=== PATIENT | female | born 1935 | race Caucasian/White ===

== ENCOUNTER 2016-05-25 08:29 | Day surgery (SDC) | payer MEDICARE, OTHER ==
[~2016-05-25 08:29] MED LIST: LACTATED RINGERS 1,000 ML IV.SOLN IV ONE; LIDOCAINE HCL/PF 2% 100 MG/5 ML VIAL IJ ONE; PROPOFOL 200 MG/20 ML VIAL IV ONE; SALINE FLUSH 10 ML DISP.SYRIN IVF ONE
--- NOTE | 2016-05-25 12:14 | GI Report ---
REFERRING PHYSICIAN: Dr. Ward Alex SANDWICH MAKER: Vito Rosas MD PROCEDURE MEDICATION: Propofol as per anesthesia. INDICATIONS: Patient is a 80-year-old woman who comes from [facility] with complaints of some blood in her stool and episodes of diarrhea. She does have COPD and still smokes. She is on a number of medications and she has had a TIA and stroke in the past. She is referred for the above indications. PROCEDURE PERFORMED: Colonoscopy with biopsies. PROCEDURE: An Olympus video pediatric colonoscope was advanced to the rectum. The prep was poor. There was some dark mushy fluid throughout the whole colon. We tried to lavage it. We were able to finally get to the cecum. The appendiceal orifice, we lavaged her. 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 On glimpse at the terminal ileum, it was unremarkable. On slow withdrawal, cecum and ascending colon with redundancy. Again, prep was poor. Descending colon, again, with redundancy and poor prep. We did take random biopsies to rule out microscopic colitis. She does have a hemorrhoid in the rectum. The patient tolerated the procedure well. FINDINGS: 1. An atonic redundant colon. 2. Poor prep. 3. 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 4. Random biopsies to rule out microscopic colitis. RECOMMENDATIONS: 1. I would consider adding Benefiber or some fiber preparation that may help regulate the constipation and diarrhea back and forth better. 2. Follow up with Dr. Alex. cc: Dr. Ward OROZCO
== END 2016-05-25 08:30 ==
LOC: OPSURG 08:29
PROVIDERS: ATTEND Internal Medicine Gastroenterology
DX: K92.1 Melena (principal); R19.7 Diarrhea, unspecified; J44.9 Chronic obstructive pulmonary disease, unspecified; F17.210 Nicotine dependence, cigarettes, uncomplicated; K64.8 Other hemorrhoids
CPT/HCPCS: 88305; J2001; J2704; J7120; 45378; S1016

== ENCOUNTER 2017-05-01 19:33 | Emergency (ER) | payer MEDICARE, OTHER ==
--- NOTE | 2017-05-01 20:22 | ED Physician Documentation ---
Lower Extremity Injury - HISTORIAN Historian: patient, paramedics - HPI Stated Complaint: left knee pain Chief Complaint: Lower Extremity Injury Additional Information: PT OUT SHOPPING W/ [employer] TODAY GOT OUT OF CAR FELT POP LT KNEE-ON FLEET AFTERWARD FOR ABOUT 3 HRS-WITH PROGRESSIVE PAIN TO POINT PT THINKS CAN NOW WALK. NO FALL OR PREV KNEE PAIN. PT USUALLY DOES 'lots of walking' Onset: hours (1400HRS) Where: other (SHOPING AT [employer]) Severity: moderate, severe (ACCD TO PT) Context: twist. denies: fall, direct blow, stab, laceration, burn, barefoot Associated Symptoms:: swelling (PT SAYS YES-DONT SEE IT), unable to bear weight. denies: numbness distally Modifying Factors:: pain on movement - ROS CONST: denies: no problems CVS/RESP: none GI/: denies: problems urinating, nausea, vomiting MS/SKIN/LYMPH: none NEURO: anxiety. denies: headache, head injury, depression - PAST HX Past History: other (PT ADMITSMC COPD IN - OLD RECORD ALSO SAY; BIPOLAR DEMENTIA DELUSIONAL DISORDER SOMATIZATION SYNDROMESEIZURAE HTN PSYCHOSES ANXIETY PARANOIA SCHIZOPHRENIA) Allergies/Adverse Reactions: Allergies Allergy/AdvReac Type Severity Reaction Status Date / Time No Known Allergies Allergy Verified 05/01/17 20:21 Home Medications: Ambulatory Orders Medication Instructions Recorded Alprazolam [Xanax] 0.25 mg PO BID 05/01/17 Ascorbic Acid [Vitamin C] 500 mg PO DAILY 05/01/17 Budesonide/Formoterol Fumarate 1 puff IH BID 05/01/17 [Symbicort 80-4.5 Mcg Inhaler] Cetirizine HCl [Zyrtec] 10 mg PO DAILY 05/01/17 Cholecalciferol [Vitamin D-3] 2,000 unit PO DAILY 05/01/17 Duloxetine HCl [Cymbalta] 60 mg PO BID 05/01/17 Fluticasone Propionate [Flonase 1 spray NS BID PRN 05/01/17 Nasal [place]] Ipratropium/Albuterol Sulfate 3 ml NEB QID PRN 05/01/17 [Duoneb] Lamotrigine [Lamictal] 100 mg PO BID 05/01/17 Multivitamin [Tab-A-Stew] 1 each PO DAILY 05/01/17 Ondansetron HCl Rapdis [Zofran Odt] 4 mg PO Q6 PRN 05/01/17 Phenylephrine HCl [Suphedrine PE] 10 mg PO DAILY PRN 05/01/17 Risperidone [Risperdal] 0.25 mg PO BID 05/01/17 Topiramate [Topamax] 50 mg PO DAILY 05/01/17 Travoprost Z [Travatan Z 0.004% 1 drop OP HS 05/01/17 Opth [place]] Trazodone HCl 50 mg PO HS 05/01/17 Wheat Dextrin [Benefiber] 152 gm PO DAILY 05/01/17 - SOCIAL HX Smoking History: less than 1 pack/day Alcohol Use: none Drug Use: none - FAMILY HX Family History: no significant history - VITAL SIGNS Vital Signs: Vital Signs Temp Pulse Resp BP Pulse Ox 97.6 F 75 18 142/53 96 05/01/17 19:33 05/01/17 19:33 05/01/17 19:33 05/01/17 19:33 05/01/17 19:33 - REVIEWED ASSESSMENTS Nursing Assessment Reviewed: Yes Vitals Reviewed: Yes ED Results Lab/Radiology - Radiology Radiology Impressions: xray knee= no acute disease-in fact remarkably good abbie for age 81-there in no joint narrowing or apparent djd - Orders Orders: ED Orders Category Date Time Status Knee Immobilizer 1T Care 05/01/17 21:06 Ordered KNEE 3 VIEWS [RAD] Stat Exams 05/01/17 Ordered traMADol HCL [Ultram] Med 05/01/17 21:05 Once 50 mg PO NOW ONE Lower Extremities Injury Phy - Physical Exam General Appearance: mild distress, moderate distress Knees: N/A: non-tender (HAS SIG C/O PAIN W/TOUCH OR ATT MOVEMENT. THER IS LITTLE SWELLING IF ANY-WILL XRAY) Ligaments: pain on medial stress (MINIMAL ON MED LAT STRESS--RESISTS BENDING) Gait: unable to bear weight (ACCD TO PT-STATES PAIN GOT PROG WORSE CONTINUED TO AMBULATE WHILE SHOPPING) Neuro/Vascular/Tendon: no vascular compromise, motor nml, sensation nml, ROM limited by pain. No: abnml color, abnml warmth, abnml cap refill, pulse deficit , sensory deficit, motor deficit, tendon injury Head/ENT: nml inspection Neck/Back: nml inspection Resp/CVS: chest non-tender, breath sounds nml, heart sounds nml, no resp. distress, lungs clear, reg. rate & rhythm Abdomen: non-tender Discharge Clincal Impression: knee sprain Referrals: Ward Alex MD [Primary Care Provider] - 2 Days Comments: home knee brace resst use walker or crutch as progresses Condition: Good Disposition: 01 HOME, SELF-CARE Decision to Admit: NO Decision Time: 21:09
[2017-05-01] MEDS ORDERED: traMADol HCL 50 MG TABLET PO ONE (21:05)
--- NOTE | 2017-05-01 21:09 | Diagnostic Imaging Report ---
[facility] [address] [facility].[address] [id number] Report Submission Date: May 01, 2017 9:01:52 PM ENRICHMENT TEACHER Patient Study Name: ALEISHA CONTRERAS Date: May 01, 2017 8:36:02 PM ENRICHMENT TEACHER Modality Type: CR Gender: F Description: LOWER EXTREMITY : 37 Institution: [facility] Physician: AMARI CLEMENT Left knee, 3 views History: Knee pain Findings: The osseous, joints and soft tissue structures are normal. Impression: Normal. Electronically signed on May 01, 2017 9:01:52 PM ENRICHMENT TEACHER by: Phuc OROZCO
[2017-05-01 22:24] VITALS: BP 145/63
== END 2017-05-01 22:00 | disposition home or self-care (01) ==
LOC: ED 19:33
DX: M25.562 Pain in left knee (principal)
CPT/HCPCS: 73562; 99282; 99283

== ENCOUNTER 2018-12-30 12:38 | Emergency (ER) | payer MEDICARE, OTHER ==
--- NOTE | 2018-12-30 13:21 | ED Physician Documentation ---
General Adult - HISTORIAN Historian: patient - HPI Stated Complaint: abscess Chief Complaint: General Adult Onset: days ago (7) Timing: still present Severity: moderate Further Comments: yes (Pt is an 83 yo female with an abscess on her L lower abdomen that began a week ago. It started as a small pimple-like lesion and then got bigger. Pt's pcp called in a script for Bactim Ds, apparently, but pt says she has not taken this yet. Pt has had no fever, n/v, or other systemic sx.) - ROS CONST: no problems EYES/ENT: none CVS/RESP: none GI/: none MS/SKIN/LYMPH: other (abscess lower L abdomen) - PAST HX Past History: other (anxiety/depression, bipolar d/o, dementia, COPD, HLD, seizures.) Surgeries/Procedures: cholecystectomy, other (appendectomy) Allergies/Adverse Reactions: Allergies Allergy/AdvReac Type Severity Reaction Status Date / Time No Known Allergies Allergy Verified 12/30/18 12:55 Home Medications: Ambulatory Orders Medication Instructions Recorded Alprazolam [Xanax] 0.25 mg PO TID 05/01/17 Ascorbic Acid [Vitamin C] 500 mg PO BID 05/01/17 Budesonide/Formoterol Fumarate 1 puff IH BID 05/01/17 [Symbicort 80-4.5 Mcg Inhaler] Cholecalciferol [Vitamin D-3] 2,000 unit PO DAILY 05/01/17 Duloxetine HCl [Cymbalta] 60 mg PO BID 05/01/17 Ipratropium/Albuterol Sulfate 3 ml NEB QID PRN 05/01/17 [Duoneb] Multivitamin [Tab-A-Stew] 1 each PO DAILY 05/01/17 Risperidone [Risperdal] 0.25 mg PO TID 05/01/17 Topiramate [Topamax] 50 mg PO BID 05/01/17 Trazodone HCl 150 mg PO HS 05/01/17 Wheat Dextrin [Benefiber] 152 gm PO DAILY 05/01/17 lamoTRIgine [Lamictal] 100 mg PO BID 05/01/17 Acetaminophen [Tylenol Arthritis] 1 tab PO AM 12/30/18 Citalopram Hydrobromide [Celexa] 1 tab PO DAILY 12/30/18 Ferrous Sulfate [Iron] 1 tab PO DAILY 12/30/18 HYDROcodone /APAP 5/325 [Guy 1 tab PO BID PRN 12/30/18 5/325] Ipratropium/Albuterol Sulfate 1 puff INH QID 12/30/18 [Combivent Respimat] Metaxalone [Skelaxin] 1 tab PO TID PRN 12/30/18 Simvastatin [Zocor] 1 tab PO HS 12/30/18 Sulfamethoxazole/Trimethoprim 1 tab PO BID 12/30/18 [Bactrim DS] - SOCIAL HX Smoking History: cigarettes - FAMILY HX Family History: No - VITAL SIGNS Vital Signs: Vital Signs Temp Pulse Resp BP Pulse Ox 145/63 05/01/17 22:07 - REVIEWED ASSESSMENTS Nursing Assessment Reviewed: Yes Vitals Reviewed: Yes Procedures Site: Lower L abd wall Blade Size: 11 I & D Procedure: Chlorhexidine Progress: 2% Lidocaine, 5 cc 5 cc pus expressed Cx sent to lab. Progress - Progress Progress: 2% Lidocaine for I & D Rocephin 1 gm IM in ER Rx Bactrim DS. Take one every 12 hours for 10 days. Refill if abscess is not COMPLETELY resolved after 10 days and continue until abscess is resolved. General Adult Physical Exam - PHYSICAL EXAM GENERAL APPEARANCE: no distress EENT: pharynx normal NECK: normal inspection, supple RESPIRATORY: no resp distress, chest non-tender, breath sounds normal CVS: reg rate & rhythm, heart sounds normal ABDOMEN: soft, no organomegaly, normal bowel sounds BACK: normal inspection, no CVA tenderness SKIN: other (4 cm abscess, L lower abdomen with surrounding erythema.) NEURO: oriented X3, motor nml, sensation nml, other (baseline ms) Discharge Clincal Impression: Abdominal wall abscess Referrals: Ward Alex MD [Primary Care Provider] - Condition: Stable Disposition: [facility] Decision to Admit: NO Decision Time: 15:02
[2018-12-30 13:35] VITALS: BP 127/47
[2018-12-30] MEDS ORDERED: cefTRIAXone SODIUM 1 GM INJ ONE (14:01)
[2018-12-30] MEDS ORDERED: oxyCODONE/ACETAMINOPHEN 5/325 TABLET PO ONE ×2 (14:01→14:04)
[2018-12-30] MEDS ORDERED: [UNRECOGNIZED DRUG - OTHER] ONE (14:29)
[2018-12-30] MEDS ORDERED: LIDOCAINE HCL ONE (14:29)
[2018-12-30] MEDS ORDERED: LIDOCAINE HCL 2% PF 100MG/5ML VIAL IJ ONE (14:30)
[2018-12-30] MEDS ORDERED: cefTRIAXone SODIUM 1 GM in Lidocaine 1% 5ml 2.1 ML IM ONE (14:45)
[2018-12-30] MEDS ORDERED: LIDOCAINE HCL 2% MDV 400MG/20ML VIAL IP ONE (14:50)
== END 2018-12-30 14:59 ==
LOC: ED 12:38
DX: L02.211 Cutaneous abscess of abdominal wall (principal)
CPT/HCPCS: 10060; 87070; 99282; A9270; J0696; 87186